=== PATIENT | male | born 1940 | race Caucasian/White ===

== ENCOUNTER → 2019-11-21 | Outpatient (CLI) | payer MEDICARE, OTHER | LOC: RAD 13:31 | PROVIDERS: ATTEND Internal Medicine | DX: M54.32 Sciatica, left side (principal) | CPT/HCPCS: 93970 ==

== ENCOUNTER 2022-01-06 13:35 | Outpatient (RCR) | payer MEDICARE, OTHER | END 2022-01-27 | LOC: PT 13:35 | PROVIDERS: ATTEND Internal Medicine | DX: M15.9 Polyosteoarthritis, unspecified (principal) ==